=== PATIENT | female | born 1960 | race Caucasian/White ===

== ENCOUNTER 2018-05-01 11:18 | Observation (INO) | payer BC, OTHER ==
[~2018-05-01] VITALS: Ht 157.5 cm; Wt 103.9 kg
[~2018-05-01 11:18] MED LIST: ADVIL,NUPRIN,M200 MG PO; ASPIRIN E.C.81 M1 PO; CELEXA10 MG PO; CELEXA20 MG PO; COMPAZINE10 MG PO; CRESTOR5 MG PO; DILAUDID2 MG PO; ERGOCALCIF50000 UNIT PO; ESTRADERM1 EACH TD; FELODIPINE ER2.5 MG PO; FLEXERIL10 MG PO; FLEXERIL5 MG PO; GABAPENTIN300 MG PO; HYDROXYCHLOROQ200 MG PO; KEFLEX500 MG PO; LEXAPRO10 MG PO; LORTAB 5-325 M1 EACH PO; MECLIZINE HCL25 M3 PO; MEDROL DOSEPAK4 MG PO; MIRALAX; MOBIC15 MG PO; Motrin PO; NAMENDA XR7 MG PO; NAPROSYN500 MG PO; NEURONTIN300 MG PO; OMEPRAZOLE; OMEPRAZOLE40 M1 PO; PERCOCET 5/31 TABLET PO; PHENERGAN-CODE120 ML PO; PLAVIX; PREDNISONE5 MG PO; SPIRONOLACTONE25 MG PO; TIZANIDINE HCL2 MG PO; TROKENDI XR100 MG PO; ULTRAM50 MG PO; VALIUM5 MG PO; VITAMIN D250000 UNIT PO; Vicodin,Lortab 5/500 PO
[2018-05-01 11:50] LABS: HEMATOCRIT 45.1 % (36.0-46.0); HEMOGLOBIN 15.3 G/DL (11.9-15.5); MCH 30.4 PG (29.0-34.0); MCHC 33.9 G/DL (30.0-36.0); MCV 89.5 FL (83-99); PLATELET COUNT 212 K/uL (156-360); RBC DIS.WIDTH-CV 14.1 % (11.8-14.6); RBC DIS.WIDTH-SD 45.8 % (39-53); RED BLOOD COUNT 5.04 M/uL (3.80-5.20); WHITE BLOOD COUNT 9.3 K/uL (4.1-10.2)
[2018-05-01 11:58] LABS: CHLORIDE 109 mEq/L (99-109); POTASSIUM 3.9 mEq/L (3.7-5.4)
[2018-05-01 11:59] LABS: SODIUM 142 mEq/L (136-147)
[2018-05-01 12:00] LABS: GLUCOSE 106 mg/dL (70-99)
[2018-05-01 12:04] LABS: CREATININE 0.9 mg/dL (0.6-1.3); GFR ESTIMATE (CALCULATED) > 59 mL/min/
[2018-05-01 12:05] LABS: UREA NITROGEN (BUN) 12 mg/dL (9-23)
[2018-05-01 12:09] LABS: PTT 30.2 SEC (25-37)
[2018-05-01 12:11] LABS: TROP-I INTERPRETATION NEGATIVE; TROPONIN-I < 0.01 ng/mL (0.0-0.30)
[2018-05-01] MEDS ORDERED: DULCOLAX5 MG PO (13:18)
[2018-05-01] MEDS ORDERED: ASCORBIC ACID100 MG PO (13:19)
[2018-05-01] MEDS ORDERED: B-COMPLEX-VITA1 EACH PO (13:19)
[2018-05-01] MEDS ORDERED: MILK OF MAGN PO (13:19)
[2018-05-01] MEDS ORDERED: CELEXA20 MG PO (13:20)
[2018-05-01] MEDS ORDERED: ACETAMINOPHEN-1 EAC1 PO (13:20)
[2018-05-01 14:06] LABS: TOTAL CHOLESTEROL 237 mg/dL (Desirable<200); TRIGLYCERIDES 251 MG/DL (Normal: <150)
[2018-05-01 15:10] VITALS: BP 114/68
[2018-05-01 17:06] LABS: HDL CHOLESTEROL 35 MG/DL (Desirable>=50); LDL CHOLESTEROL 152 mg/dL (Desirable<100); NON-HDL CHOLESTEROL 202 mg/dL (Desirable<160)
[2018-05-01 19:15] VITALS: BP 102/62
[2018-05-02 00:19] VITALS: BP 96/60
[2018-05-02 03:29] VITALS: BP 114/65
[2018-05-02 07:45] VITALS: BP 119/56
[2018-05-02 09:45] LABS: HEMOGLOBIN A1c (GLYCOHEMOGLOB) 5.8 % (Below 5.7)
[2018-05-02 11:32] VITALS: BP 122/69
== END 2018-05-02 11:55 | disposition home or self-care (01) ==
LOC: EME 11:18 → EDOF 12:52 → 4SOUTH 12:52 → EDOF 12:52 → ENRESERV 13:05 → 4SOUTH 14:56
PROVIDERS: Emergency Medicine; Nurse Practitioner Adult Health
DX: R29.810 Facial weakness (principal); Z86.73 Personal history of transient ischemic attack (TIA), and cerebral infarction without residual deficits; M54.81 Occipital neuralgia; G62.9 Polyneuropathy, unspecified; M48.00 Spinal stenosis, site unspecified; G43.909 Migraine, unspecified, not intractable, without status migrainosus; Z98.890 Other specified postprocedural states; F17.200 Nicotine dependence, unspecified, uncomplicated
CPT/HCPCS: 70450; 70496; 70551; 80048; 80061; 83010 90; 83036; 84484; 85007; 85025; 85027; 85060; 85610; 85730; 86880; 93005; 95819; G0378; J1650

== ENCOUNTER 2018-05-04 08:40 | Emergency (ER) | payer BC, OTHER ==
[~2018-05-04] VITALS: Ht 157.5 cm; Wt 103.0 kg
[~2018-05-04 08:40] MED LIST changes: +ACETAMINOPHEN-1 EAC1 PO; +ASCORBIC ACID100 MG PO; +B-COMPLEX-VITA1 EACH PO; +DULCOLAX5 MG PO; +MILK OF MAGN PO
[2018-05-04 10:06] VITALS: BP 91/78
== END 2018-05-04 10:08 | disposition home or self-care (01) ==
LOC: EME 08:40
DX: S93.402A Sprain of unspecified ligament of left ankle, initial encounter (principal); W18.30XA Fall on same level, unspecified, initial encounter; F32.9 Major depressive disorder, single episode, unspecified; K21.9 Gastro-esophageal reflux disease without esophagitis; F41.9 Anxiety disorder, unspecified; M32.9 Systemic lupus erythematosus, unspecified; Z86.718 Personal history of other venous thrombosis and embolism; F17.200 Nicotine dependence, unspecified, uncomplicated
CPT/HCPCS: 73590; 73630; 99281; 99283